=== PATIENT | male | born 1990 | race African-American/Black ===

== ENCOUNTER 2016-10-26 20:51 | Emergency (ER) | payer OTHER ==
[~2016-10-26] VITALS: Ht 170.2 cm; Wt 108.4 kg
[~2016-10-26 20:51] MED LIST: AMOXICILLIN875 MG PO; MOTRIN600 MG PO; MOTRIN800 MG PO; NAPROXEN500 MG PO; NOHOMEMEDS; NORCO 5/3251 TABLET PO; PROAIR HFA8.5 GM IH; TRAMADOL HCL50 MG PO
[2016-10-26 23:14] VITALS: BP 132/84
== END 2016-10-26 23:22 | disposition home or self-care (01) ==
LOC: EME 20:51
DX: S80.11XA Contusion of right lower leg, initial encounter (principal); S60.221A Contusion of right hand, initial encounter; V49.40XA Driver injured in collision with unspecified motor vehicles in traffic accident, initial encounter
CPT/HCPCS: 73130; 73590; 99281; 99284

== ENCOUNTER 2017-11-06 17:46 | Emergency (ER) | payer OTHER ==
[~2017-11-06] VITALS: Ht 170.2 cm; Wt 111.4 kg
[2017-11-06 18:36] LABS: HEMATOCRIT 45.9 % (38.0-50.0); HEMOGLOBIN 15.1 G/DL (12.5-16.6); MCH 28.8 PG (29.0-34.0); MCHC 32.9 G/DL (30.0-36.0); MCV 87.4 FL (86-99); PLATELET COUNT 284 K/uL (156-360); RBC DIS.WIDTH-CV 11.8 % (11.8-14.6); RBC DIS.WIDTH-SD 37.7 % (39-53); RED BLOOD COUNT 5.25 M/uL (4.00-5.50); WHITE BLOOD COUNT 9.5 K/uL (4.1-10.2)
[2017-11-06 18:54] LABS: TROP-I INTERPRETATION NEGATIVE; TROPONIN-I < 0.01 ng/mL (0.0-0.30)
[2017-11-06 19:06] LABS: CHLORIDE 104 MEQ/L (99-109); POTASSIUM 4.6 MEQ/L (3.7-5.4); SODIUM 141 MEQ/L (136-147)
[2017-11-06 19:11] LABS: CREATININE 0.8 MG/DL (0.6-1.3); GFR ESTIMATE (CALCULATED) > 59 mL/min/ (58.99-99999); GLUCOSE 101 mg/dL (70-99); UREA NITROGEN (BUN) 13 mg/dL (9-23)
[2017-11-06] MEDS ORDERED: NAPROXEN500 MG PO (22:51)
[2017-11-06 23:26] VITALS: BP 122/65
== END 2017-11-06 23:29 | disposition home or self-care (01) ==
LOC: EME 17:46
DX: R07.89 Other chest pain (principal); J45.909 Unspecified asthma, uncomplicated
CPT/HCPCS: 71046; 80048; 84484; 85027; 93005; 99281; 99285; J8540